=== PATIENT | female | born 1975 | race Caucasian/White ===

== ENCOUNTER 2024-04-06 00:05 | Emergency (ER) | payer SELFPAY ==
[2024-04-06] MEDS ORDERED: Tranexamic Acid 1,000 MG/10 ML VIAL ONE (00:35)
[2024-04-06 01:12] LABS: PTT 25.4 sec (22.0-33.0); Prothrombin Time 11.2 sec (9.5-12.1)
[2024-04-06 01:13] LABS: #Basophils 0.07 10x3/uL (0.0-0.2); #Eosinophils 0.79 10x3/uL (0.0-0.5); #Monocytes 0.47 10x3/uL (0.0-1.1); #Neutrophils 4.58 10x3/uL (1.5-8.4); %Basophils 0.9 % (0.0-2.0); %Eosinophils 9.7 % (0.0-6.0); %Monocytes 5.8 % (0.0-10.0); %Neutrophils 56.4 % (40.0-75.0); BHCG - Serum Negative (NEGATIVE); Hematocrit 27.1 % (34.9-44.5); Hemoglobin 7.7 g/dL (12.0-15.5); Mean Corpuscular HGB CONC 28.4 g/dL (32.0-36.0); Mean Corpuscular Hemoglobin 21.1 pg (27.0-33.0); Mean Corpuscular Volume 74.2 fL (81.6-98.3); Mean Platelet Volume 9.1 fL (7.4-10.4); Platelet Count 410 10x3/uL (150-450); Pregs Control Background? CLEAR/WHITE (CLR/WHITE); Pregs Control Bar Appear? YES (CONTROL BAR); RBC Distribution Width 24.3 % (11.5-14.5); Red Blood Cell (RBC) Count 3.65 10x6/uL (3.90-5.03); White Blood Cell (WBC) Count 8.1 10x3/uL (3.5-10.5)
[2024-04-06] MEDS ORDERED: Nicotine 7 MG PATCH TOP SCH (01:15)
[2024-04-06 01:18] LABS: ALT (SGPT) 9 U/L (8-55); AST (SGOT) 16 U/L (5-34); Albumin 3.6 g/dL (3.5-5.0); Alkaline Phosphatase 59 U/L (40-110); Anion Gap 14 mmol/L (10-20); BUN (Urea Nitrogen) 7 mg/dL (7.0-18.7); Bilirubin, Total 0.4 mg/dL (0.2-1.2); Calc. Creatinine Clearance 0 mL/min (70-130); Calcium 8.9 mg/dL (7.8-10.44); Carbon Dioxide 23 mmol/L (22-29); Chloride 105 mmol/L (98-107); Estimated GFR 105; Globulin 3.2 g/dL (2.4-3.5); Glucose 92 mg/dL (70-105); Potassium 3.4 mmol/L (3.5-5.1); Protein, Total 6.8 g/dL (6.0-8.3); Sodium 139 mmol/L (136-145)
[2024-04-06 02:38] LABS: Anisocytosis MODERATE=16-30 cells (100X) (0-5/hpf); Elliptocytes SLIGHT = 2-5 cells (100X) (0-1/hpf); Hypochromia SLIGHT = 6-15 cells (100X) (0-5/hpf); Microcytosis SLIGHT = 6-15 cells (100X) (0-5/hpf); Ovalocytes MODERATE= 6-15 cells (100X) (0-1/hpf); Platelet Adequacy Comment Appears Adequate; Polychromasia SLIGHT = 2-3 cells (100X) (0-2/hpf)
[2024-04-06] MEDS ORDERED: Ibuprofen 200 MG TAB ONE (03:06)
== END 2024-04-06 03:46 | disposition home or self-care (01) ==
LOC: CSHERS 00:05
DX: D64.9 Anemia, unspecified (principal); N93.9 Abnormal uterine and vaginal bleeding, unspecified; D25.1 Intramural leiomyoma of uterus; D25.2 Subserosal leiomyoma of uterus; N88.8 Other specified noninflammatory disorders of cervix uteri; Z87.891 Personal history of nicotine dependence; Z79.899 Other long term (current) drug therapy
CPT/HCPCS: 36415; 76856; 80053; 84703; 85025; 85610; 85730; 86850; 86900; 86901; 96365